=== PATIENT | male | born 1985 | race Caucasian/White ===

== ENCOUNTER 2016-07-04 10:54 | Emergency (ER) | payer OTHER ==
[~2016-07-04] VITALS: Ht 180.3 cm; Wt 61.4 kg
[2016-07-04 10:54] VITALS: BP 127/75; PULSE 118; RESP 17; TEMP 98; O2SAT 98
[2016-07-04] MEDS ORDERED: AZIT500T2 PO (11:37)
--- NOTE | 2016-07-04 11:38 | PD ---
HPI Chief Complaint: ENT Complaint Time Seen by Provider: 11:33 Travel History International Travel<30 days: No Contact w/Intl Traveler<30days: No Traveled to known affect area: No History of Present Illness HPI 30-year-old male presents to the emergency department for evaluation of sore throat for 2 days. He states he has white spots in the back of his throat. Patient denies any current cough or congestion. He states he chills last night , but denies any documented fever. He denies abdominal pain. No vomiting. Patient does state he is HIV positive. He states he is not currently on antivirals. [place]. 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 He denies any current issues with a lymphoma. Patient denies any other medical complaints at this time. [facility] [place] Social History Alcohol Use: No Tobacco Use: No Substance Use: No Allergies-Medications (Allergen,Severity, Reaction): Coded Allergies: Penicillin (Verified Allergy, Unknown, Hives, 07/04/16) Reported Meds & Prescriptions Reported Meds & Active Scripts Active Azithromycin 500 Mg Tab 500 Mg PO DAILY Review of Systems Except as stated in HPI: all other systems reviewed are Neg Physical Exam Narrative GENERAL: Well-developed well-nourished male patient, ambulatory. Afebrile. SKIN: Warm and dry. HEAD: Normocephalic. Atraumatic. ENT: Mucosa pink and moist. Bilateral tonsils are erythematous with exudates. No uvular edema. No uvular, palatal, or tonsillar deviation. Airway patent. Nasal turbinates appear normal without nasal blood, purulent drainage or septal hematoma. Bilateral tympanic membranes are clear without erythema or perforation. EYES: No scleral icterus. No injection or drainage. NECK: Supple, trachea midline. No JVD or lymphadenopathy. CARDIOVASCULAR: Regular rate and rhythm without murmurs, gallops, or rubs. RESPIRATORY: Breath sounds equal bilaterally. No accessory muscle use. Lung sounds are clear to auscultation throughout. GASTROINTESTINAL: Abdomen soft, non-tender, nondistended. MUSCULOSKELETAL: No cyanosis, or edema. Data Data Last Documented VS Vital Signs Date Time Temp Pulse Resp B/P Pulse Ox O2 Delivery O2 Flow Rate FiO2 07/04/16 11:45 98 16 100 Room Air 07/04/16 10:54 98.0 127/75 [facility] Medical Decision Making Medical Screen Exam Complete: Yes Emergency Medical Condition: Yes Medical Record Reviewed: Yes Differential Diagnosis strep pharyngitis vs. viral pharyngitis vs. URI Narrative Course 30 year old male presents to the emergency department for evaluation of sore throat for 2 days. Patient is HIV positive. Physical exam reveals exudates to bilateral tonsils. Patient will be discharged with a prescription for azithromycin. He is instructed to take Tylenol and ibuprofen [id number] and do warm salt water gargles. He verbalizes agreement and understanding. Diagnosis Primary Impression: Exudative pharyngitis Referrals: Primary Care Physician call for appointment Patient Instructions: General Instructions, Pharyngitis (ED) Additional Instructions: Tylenol or Motrin [id number] as needed for pain/fever. Take antibiotic as directed until gone. Warm salt water gargles as needed. Follow-up with a primary care physician. Return to the emergency department for any acute worsening of symptoms. Med/Other Pt SpecificInfo: Prescription(s) given Scripts Azithromycin 500 Mg Oiv608 Mg PO DAILY #5 TAB Ref 0 Prov:Adriana Soto 07/04/16 Disposition: 01 DISCHARGE HOME Condition: Stable Adriana Soto Jul 04, 2016 11:38
[2016-07-04 11:45] VITALS: PULSE 98; RESP 16; O2SAT 100
== END 2016-07-04 12:00 | disposition home or self-care (01) ==
LOC: NEPB 10:54
DX: J02.9 Acute pharyngitis, unspecified (principal)
CPT/HCPCS: 99283